=== PATIENT | female | born 1985 | race Caucasian/White ===

== ENCOUNTER 2017-01-20 13:01 | Emergency (ER) | payer OTHER ==
[~2017-01-20 13:01] MED LIST: BACTRIM DS TABL1 TA1 PO; CELEXA PO; DARVOCET-N 1001 TAB PO; DICLOFENAC PO; FLEXERIL PO; FLEXERIL10 MG PO; IBUPROFEN PO; LORTAB 7.5-5001 TAB PO; MEDROL PO; MIRENA; MOBIC PO; NAPROXEN PO; SOMA PO; VICODIN 5/500 T1 TAB PO; VOLTAREN75 MG PO
== END 2017-01-20 13:30 | disposition home or self-care (01) ==
LOC: CFTX 13:01
DX: L02.415 Cutaneous abscess of right lower limb (principal); L03.115 Cellulitis of right lower limb
CPT/HCPCS: 99282

== ENCOUNTER 2017-01-26 15:42 | Emergency (ER) | payer OTHER | END 2017-01-26 16:05 | disposition home or self-care (01) | LOC: CFTX 15:42 | DX: L02.415 Cutaneous abscess of right lower limb (principal); F32.9 Major depressive disorder, single episode, unspecified; Z98.890 Other specified postprocedural states | CPT/HCPCS: 99282; 99283 ==